=== PATIENT | female | born 1990 | race Hispanic/Latino ===

== ENCOUNTER 2017-03-05 13:49 | Outpatient (CLI) | payer OTHER ==
--- NOTE | 2017-03-05 15:45 | ULT ---
OB ULTRASOUND: History Size and dates. FINDINGS: Real-time images of the pelvis show a single viable intrauterine which is in a vertex prese ntation. measurements are as follows: BPD 9.1 cm, 36 weeks 5 days Head circumference 29.7 cm, 32 weeks 6 days Abdominal circumference 31.7 cm, 35 weeks 5 days Femur length 6.9 cm, 35 weeks 2 days Visually, the amniotic fluid appears diminished. Amniotic fluid index is calculated at 18, but the p ockets of fluid are small. Limited evaluation of anatomy was performed. The head is difficult to visualize. Four-chamber heart, stomach, kidneys, cord insertion, and bladder appear normal. Three-vessel cord cannot be def initely seen. The placenta is anterior in location without evidence of previa. heart rate is 152 b.p.m. Cer vical canal length is 3.2 cm. IMPRESSION: 1. Single viable intrauterine overall measurements corresponding to a gestational age of 3 4 weeks 0 days, estimated date of delivery of 04/16/17. Clinical dates would indicate a date of deli very of 03/14/17. This would raise the possibility of intrauterine growth retardation. 2. Visually, the amniotic fluid appears decreased. 3. Grade III anterior placenta. 4. Estimated weight 2660 +/- 394 gm. POS: [facility]
== END 2017-03-05 13:50 | disposition home or self-care (01) ==
LOC: ULT 13:49
PROVIDERS: ATTEND Family Medicine
DX: Z34.93 Encounter for supervision of normal pregnancy, unspecified, third trimester (principal); Z3A.34 34 weeks gestation of pregnancy
CPT/HCPCS: 76805

== ENCOUNTER 2017-03-08 07:45 | Outpatient (CLI) | payer OTHER ==
--- NOTE | 2017-03-08 10:09 | ULT ---
ABDOMINAL ULTRASOUND: Date: 03/08/17 HISTORY: Elevated LFTs. . COMPARISON: None available. FINDINGS: There is mildly increased hepatic echotexture. Main portal vein is patent. The pancreas is not seen. The liver measures 13.7 cm in length. Gallbladder wall thickness is normal. Common bile duct measures 3.0 mm. Spleen measures 10.9 x 4.4 x 3.1 cm. Right kidney measures 10.2 x 4.7 x 5.3 cm without mass, hydronephrosis, or abnormal calcifications. L eft kidney measures 10.0 x 6.2 x 5.1 cm without mass, hydronephrosis or abnormal calcifications. IMPRESSION: 1. Mildly increased hepatic echotexture suggestive of steatosis. 2. Normal appearance of the gallbladder. 3. No hydronephrosis. POS: [facility]
== END 2017-03-08 07:46 | disposition home or self-care (01) ==
LOC: ULT 07:45
PROVIDERS: ATTEND Family Medicine
DX: R74.8 Abnormal levels of other serum enzymes (principal); K76.89 Other specified diseases of liver
CPT/HCPCS: 76700